=== PATIENT | female | born 1960 | race Caucasian/White ===

== ENCOUNTER → 2020-05-17 | Day surgery (SDC) | payer OTHER ==
[2020-05-12 12:19] LABS: BASOPHILS % 0.7 % (0.0-1.0); EOSINOPHILS # (AUTO) 0.1 (0.0-0.4); HEMATOCRIT 42.3 % (34.2-44.1); HEMOGLOBIN 13.2 g/dL (12.0-16.0); LYMPHOCYTES # (AUTO) 2.2 (1.0-3.2); LYMPHOCYTES % 36.1 % (18.0-39.1); MEAN CORPUSCULAR HGB CONC 31.2 g/dL (31-35); MEAN CORPUSCULAR VOLUME 96.1 fL (81-99); MONOCYTES # (AUTO) 0.5 (0.2-0.8); MONOCYTES % 8.4 % (4.4-11.3); NEUTROPHILS # (AUTO) 3.2 (2.1-6.9); NEUTROPHILS % 52.5 % (38.7-80.0); PLATELET COUNT 256 x10e3/uL (140-360); RED CELL DISTRIBUTION WIDTH 12.9 % (11.7-14.4)
[~2020-05-17] MED LIST: BUPIVACAINE HCL 0.5% 10ML MPF VIAL INJ ONE; IOPAMIDOL 300MG/ML 50ML INFUS..BTL IV ONE; LIDOCAINE HCL 2% LOCAL INJ 5 ML SDV VIAL INJ ONE; PROAIR HFA INH8.5 GM INH; PROPOFOL IV EMULSION 10 MG/ML 20 ML VIAL ONE; SYMBICORT 80-10.2 GM INH; TRIAMCINOLONE ACET 40 MG/ML VIAL ONE
[2020-05-17 07:50] VITALS: BP 132/67
== END | disposition home or self-care (01) ==
LOC: OR 05:25
PROVIDERS: ATTEND Specialist
DX: M16.12 Unilateral primary osteoarthritis, left hip (principal); Z91.040 Latex allergy status; Z88.8 Allergy status to other drugs, medicaments and biological substances; Z91.048 Other nonmedicinal substance allergy status; Z86.19 Personal history of other infectious and parasitic diseases; J44.9 Chronic obstructive pulmonary disease, unspecified; F41.9 Anxiety disorder, unspecified; I25.2 Old myocardial infarction; Z01.810 Encounter for preprocedural cardiovascular examination; Z01.812 Encounter for preprocedural laboratory examination; Z20.822 Contact with and (suspected) exposure to COVID-19
CPT/HCPCS: 20610; 36415; 71046; 77002; 85025; 93005; J2001; J2704; J3301; Q9967; U0002; 76000

== ENCOUNTER → 2021-05-16 | Day surgery (SDC) | payer OTHER ==
[~2021-05-16] MED LIST changes: +BUPIVACAINE HCL 0.5% INJ 30 ML VIAL INJ ONE; +FENTANYL CITRATE/PF 100MCG/2 ML INJ ONE; +IOPAMIDOL 200 MG/ML 20 ML VIAL IT ONE; -IOPAMIDOL 300MG/ML 50ML INFUS..BTL IV ONE; +LIDOCAINE HCL 1% 30ML-PF VIAL ONE; -LIDOCAINE HCL 2% LOCAL INJ 5 ML SDV VIAL INJ ONE; +MIDAZOLAM HCL 2 MG/2 ML VIAL ONE; -PROPOFOL IV EMULSION 10 MG/ML 20 ML VIAL ONE
[2021-05-16 11:15] VITALS: BP 120/70
== END | disposition home or self-care (01) ==
LOC: OR 09:48
PROVIDERS: ATTEND Specialist
DX: M16.12 Unilateral primary osteoarthritis, left hip (principal); E66.01 Morbid (severe) obesity due to excess calories; B19.20 Unspecified viral hepatitis C without hepatic coma; Z88.6 Allergy status to analgesic agent; Z88.8 Allergy status to other drugs, medicaments and biological substances; Z91.041 Radiographic dye allergy status; Z91.040 Latex allergy status; Z01.810 Encounter for preprocedural cardiovascular examination; Z01.812 Encounter for preprocedural laboratory examination; Z20.822 Contact with and (suspected) exposure to COVID-19; Z68.41 Body mass index [BMI] 40.0-44.9, adult
CPT/HCPCS: 20610; 77002; 93005; J2250; J3010; J3301; Q9967; U0002; J2001

== ENCOUNTER → 2021-09-29 | Outpatient (CLI) | payer OTHER ==
[~2021-09-29] MED LIST changes: -BUPIVACAINE HCL 0.5% 10ML MPF VIAL INJ ONE; -BUPIVACAINE HCL 0.5% INJ 30 ML VIAL INJ ONE; -FENTANYL CITRATE/PF 100MCG/2 ML INJ ONE; -IOPAMIDOL 200 MG/ML 20 ML VIAL IT ONE; -LIDOCAINE HCL 1% 30ML-PF VIAL ONE; -MIDAZOLAM HCL 2 MG/2 ML VIAL ONE; -TRIAMCINOLONE ACET 40 MG/ML VIAL ONE
[2021-09-29 13:52] LABS: INR 0.93; PROTHROMBIN TIME 13.3 seconds (11.9-14.5)
[2021-09-29 13:53] LABS: PARTIAL THROMBOPLASTIN TIME 27.1 seconds (23.8-35.5)
== END ==
LOC: LAB 09:00 → EDSTATUS 10-03 11:30
PROVIDERS: ATTEND Specialist
DX: Z01.812 Encounter for preprocedural laboratory examination (principal); Z01.818 Encounter for other preprocedural examination; M16.12 Unilateral primary osteoarthritis, left hip
CPT/HCPCS: 0223U; 36415; 71046; 85610; 85730; 86850; 86900; 86920

== ENCOUNTER → 2024-07-07 | Day surgery (SDC) | payer OTHER ==
[2024-07-06 15:02] LABS: BASOPHILS % 0.6 % (0.0-1.0); EOSINOPHILS # (AUTO) 0.1 (0.0-0.4); EOSINOPHILS % 1.3 % (0.0-6.0); HEMATOCRIT 40.1 % (34.2-44.1); HEMOGLOBIN 12.9 g/dL (12.0-16.0); LYMPHOCYTES # (AUTO) 2.5 (1.0-3.2); LYMPHOCYTES % 46.4 % (18.0-39.1); MEAN CORPUSCULAR HEMOGLOBIN 30.5 pg (28-32); MEAN CORPUSCULAR HGB CONC 32.2 g/dL (31-35); MEAN CORPUSCULAR VOLUME 94.8 fL (81-99); MONOCYTES # (AUTO) 0.5 (0.2-0.8); MONOCYTES % 8.5 % (4.4-11.3); NEUTROPHILS # (AUTO) 2.3 (2.1-6.9); PLATELET COUNT 241 x10e3/uL (140-360); RED BLOOD COUNT 4.23 x10e6/uL (3.6-5.1); RED CELL DISTRIBUTION WIDTH 12.6 % (11.7-14.4); WHITE BLOOD COUNT 5.32 x10e3/uL (4.8-10.8)
[2024-07-06 15:19] LABS: INR 0.85; PROTHROMBIN TIME 12.1 seconds (11.9-14.5)
[2024-07-06 15:20] LABS: PARTIAL THROMBOPLASTIN TIME 25.1 seconds (23.8-35.5)
[2024-07-06 15:27] LABS: ANION GAP 15.7 mmol/L (8-16); CALCIUM 9.3 mg/dL (8.4-10.2); CREATININE, SERUM 0.84 mg/dL (0.57-1.11); POTASSIUM 4.7 mmol/L (3.5-5.1)
[~2024-07-07] MED LIST changes: +ACETAMINOPHEN 1000 MG/100 ML IV PRN; +ALBUTEROL0.63 MG/3 NEB; +ASPIRIN 325 MG TAB PO SCH; +ASPIRIN81 MG PO; +CELECOXIB 100 MG CAP PO SCH; +DIPHENHYDRAMINE HCL INJ 50 MG/ML VIAL IV PRN; +DOCUSATE SODIUM 100 MG CAP PO PRN; +EPHEDRINE SULFATE INJ 50 MG/ML VIAL ONE; +FAMOTIDINE 20 MG/2 ML VIAL IV ONE; +FENTANYL CITRATE/PF 100MCG/2 ML INJ ONE; +HYDROCODONE/APAP 5MG-325MG TAB PO PRN; +LIDOCAINE HCL 2% LOCAL INJ 5 ML SDV VIAL INJ ONE; +MIDAZOLAM HCL 2 MG/2 ML VIAL ONE; +ONDANSETRON HCL INJ 2MG/ML 2ML 2 MG/ML VIAL IV PRN; +ONDANSETRON HCL INJ 2MG/ML 2ML 2 MG/ML VIAL ONE; +PANTOPRAZOLE SO40 MG PO; +PROPOFOL IV EMULSION 10 MG/ML 20 ML VIAL ONE; +ROPIVACAINE/EPI/CLONIDINE/KET 50 ML SYRINGE INJ ONE; +SEVOFLURANE INHAL SOLN 250 ML PEN BTL ONE; +SODIUM CHLORIDE 0.9% 1000ML 1,000 ML IV SCH
[2024-07-07] MEDS: LACTATED RINGER'S 1,000 ML ONE (07:39)
[2024-07-07] MEDS: GABAPENTIN 300 MG CAP ONE (07:40)
[2024-07-07] MEDS: DEXAMETHASONE SOD PHOS 10 MG/1 ML VIAL ONE (07:40)
[2024-07-07] MEDS: CELECOXIB 200 MG CAP ONE (07:40)
[2024-07-07] MEDS: CEFAZOLIN SODIUM 2 GM ONE (07:40)
[2024-07-07] MEDS: FENTANYL CITRATE/PF 100MCG/2 ML INJ ONE (11:55)
[2024-07-07] MEDS: HYDROCODONE/APAP 7.5MG-325MG 1 EA TAB PO PRN (12:30)
[2024-07-07 13:00] VITALS: BP 119/72; PULSE 83; RESP 18; O2SAT 98
== END | disposition home health service (06) ==
LOC: OR 07:14
PROVIDERS: ATTEND Specialist
DX: M17.12 Unilateral primary osteoarthritis, left knee (principal); Z96.642 Presence of left artificial hip joint; Z91.198 Patient's noncompliance with other medical treatment and regimen for other reason; N18.30 Chronic kidney disease, stage 3 unspecified; B19.20 Unspecified viral hepatitis C without hepatic coma; J45.909 Unspecified asthma, uncomplicated; E66.9 Obesity, unspecified; K21.9 Gastro-esophageal reflux disease without esophagitis; F41.9 Anxiety disorder, unspecified; Z88.8 Allergy status to other drugs, medicaments and biological substances; Z88.6 Allergy status to analgesic agent; Z91.041 Radiographic dye allergy status; Z91.040 Latex allergy status; Z01.812 Encounter for preprocedural laboratory examination; Z68.35 Body mass index [BMI] 35.0-35.9, adult; Z86.718 Personal history of other venous thrombosis and embolism; Z85.43 Personal history of malignant neoplasm of ovary
CPT/HCPCS: 27447; 36415; 73560; 80048; 85025; 85610; 85730; 86850; 86900; 97116; 97161; C1713 ×2; C1776 ×3; J1100; J1308; J2003; J2250; J2405; J2704; J3010; J7121

== ENCOUNTER → 2024-09-07 | Day surgery (SDC) | payer OTHER ==
[2024-09-03 12:35] LABS: BASOPHILS % 0.6 % (0.0-1.0); EOSINOPHILS # (AUTO) 0.1 (0.0-0.4); EOSINOPHILS % 1.5 % (0.0-6.0); HEMATOCRIT 41.3 % (34.2-44.1); HEMOGLOBIN 13.3 g/dL (12.0-16.0); LYMPHOCYTES # (AUTO) 2.3 (1.0-3.2); LYMPHOCYTES % 35.7 % (18.0-39.1); MEAN CORPUSCULAR HEMOGLOBIN 30.4 pg (28-32); MEAN CORPUSCULAR HGB CONC 32.2 g/dL (31-35); MEAN CORPUSCULAR VOLUME 94.5 fL (81-99); MONOCYTES # (AUTO) 0.6 (0.2-0.8); MONOCYTES % 9.2 % (4.4-11.3); NEUTROPHILS # (AUTO) 3.4 (2.1-6.9); NEUTROPHILS % 52.8 % (38.7-80.0); PLATELET COUNT 283 x10e3/uL (140-360); RED BLOOD COUNT 4.37 x10e6/uL (3.6-5.1); RED CELL DISTRIBUTION WIDTH 12.4 % (11.7-14.4)
[2024-09-03 12:57] LABS: INR 0.91; PROTHROMBIN TIME 13.1 seconds (11.9-14.5)
[2024-09-03 12:58] LABS: PARTIAL THROMBOPLASTIN TIME 26.1 seconds (23.8-35.5)
[2024-09-03 13:08] LABS: ANION GAP 15.3 mmol/L (8-16); CALCIUM 9.3 mg/dL (8.4-10.2); CREATININE, SERUM 0.89 mg/dL (0.57-1.11); POTASSIUM 4.3 mmol/L (3.5-5.1)
[~2024-09-07] MED LIST changes: -ACETAMINOPHEN 1000 MG/100 ML IV PRN; -ASPIRIN 325 MG TAB PO SCH; -CELECOXIB 100 MG CAP PO SCH; -DIPHENHYDRAMINE HCL INJ 50 MG/ML VIAL IV PRN; -DOCUSATE SODIUM 100 MG CAP PO PRN; -EPHEDRINE SULFATE INJ 50 MG/ML VIAL ONE; -FAMOTIDINE 20 MG/2 ML VIAL IV ONE; -FENTANYL CITRATE/PF 100MCG/2 ML INJ ONE; -HYDROCODONE/APAP 5MG-325MG TAB PO PRN; -ONDANSETRON HCL INJ 2MG/ML 2ML 2 MG/ML VIAL IV PRN; -ONDANSETRON HCL INJ 2MG/ML 2ML 2 MG/ML VIAL ONE; -ROPIVACAINE/EPI/CLONIDINE/KET 50 ML SYRINGE INJ ONE; -SEVOFLURANE INHAL SOLN 250 ML PEN BTL ONE; -SODIUM CHLORIDE 0.9% 1000ML 1,000 ML IV SCH
[2024-09-07] MEDS: LACTATED RINGER'S 1,000 ML ONE (10:39)
[2024-09-07 12:10] VITALS: TEMP 98.2
[2024-09-07 12:40] VITALS: BP 124/71; PULSE 76; RESP 16; O2SAT 100
== END | disposition home or self-care (01) ==
LOC: OR 10:00
PROVIDERS: ATTEND Specialist
DX: M24.662 Ankylosis, left knee (principal); J45.909 Unspecified asthma, uncomplicated; I25.2 Old myocardial infarction; K21.9 Gastro-esophageal reflux disease without esophagitis; F31.9 Bipolar disorder, unspecified; F43.10 Post-traumatic stress disorder, unspecified; N18.30 Chronic kidney disease, stage 3 unspecified; K76.0 Fatty (change of) liver, not elsewhere classified; Z01.812 Encounter for preprocedural laboratory examination; E66.01 Morbid (severe) obesity due to excess calories; Z68.31 Body mass index [BMI] 31.0-31.9, adult; R94.31 Abnormal electrocardiogram [ECG] [EKG]; Z01.818 Encounter for other preprocedural examination; Z79.899 Other long term (current) drug therapy; Z86.19 Personal history of other infectious and parasitic diseases; Z86.73 Personal history of transient ischemic attack (TIA), and cerebral infarction without residual deficits; Z85.43 Personal history of malignant neoplasm of ovary; Z85.028 Personal history of other malignant neoplasm of stomach; Z92.21 Personal history of antineoplastic chemotherapy; Z92.3 Personal history of irradiation; Z86.718 Personal history of other venous thrombosis and embolism
CPT/HCPCS: 27570; 36415; 80048; 85025; 85610; 85730; 93005; J2003; J2250; J2704; J7121